=== PATIENT | female | born 1945 | race Caucasian/White ===

== ENCOUNTER 2018-11-03 11:50 | Emergency (ER) | payer MEDICARE ==
[2018-11-03] MEDS: SODIUM CHLORIDE 0.9% 1000ML 1,000 ML IV ONE (12:25)
[2018-11-03 13:17] VITALS: RESP 20
[2018-11-03 14:48] VITALS: BP 164/86; PULSE 97; TEMP 97.5; O2SAT 97
== END 2018-11-03 14:40 | disposition home or self-care (01) | DRG 392 ==
LOC: ED 11:50
DX: A08.4 Viral intestinal infection, unspecified (principal); R19.7 Diarrhea, unspecified; E11.9 Type 2 diabetes mellitus without complications
CPT/HCPCS: 96365; 96366; 99282; 99283